=== PATIENT | female | born 2000 | race Caucasian/White ===

== ENCOUNTER 2024-02-04 10:34 | Outpatient (CLI) | payer OTHER | END 2024-02-04 10:35 | disposition home or self-care (01) | LOC: BURRAD 10:34 | PROVIDERS: ATTEND Physician Assistant | DX: M79.641 Pain in right hand (principal) ==

== ENCOUNTER 2024-04-21 09:54 | Outpatient (CLI) | payer OTHER | END 2024-04-21 09:55 | disposition home or self-care (01) | LOC: BURRAD 09:54 | PROVIDERS: ATTEND Physician Assistant | DX: M54.32 Sciatica, left side (principal) | CPT/HCPCS: 72110 ==

== ENCOUNTER 2024-04-28 11:56 | Emergency (ER) | payer OTHER | END 2024-04-28 13:00 | disposition home or self-care (01) | LOC: BURERS 11:56 | DX: M54.42 Lumbago with sciatica, left side (principal) ==